=== PATIENT | male | born 1940 | race African-American/Black ===

== ENCOUNTER 2021-04-11 11:58 | Emergency (ER) | payer MEDICARE, OTHER ==
[~2021-04-11] VITALS: Ht 170.2 cm; Wt 96.2 kg
--- NOTE | 2021-04-11 12:19 | NUR ---
bib daughter, productive cough, sob x 2 months. PT AAOX4, VSS. RR EVEN & UNLABORED. DENIES CP, DIZZINESS, N/V AT THIS TIME. PT SEEN & EVAL'D BY DR. CAICEDO. PLACED ON EDGE BANDER OPERATOR, SR. WILL CONT TO MONITOR.
[2021-04-11 12:41] LABS: BASOPHILS % (AUTO) 0.6 % (0.0-2.0); EOSINOPHILS % (AUTO) 1.9 % (0.0-6.0); HEMATOCRIT 40 % (39-51); HEMOGLOBIN 12.1 g/dL (13.5-17.5); LYMPHOCYTES # (AUTO) 2.1 /CMM (0.8-4.8); LYMPHOCYTES % (AUTO) 33.5 % (20.0-44.0); MEAN CORPUSCULAR HGB CONC 30 g/dl (31.0-36.0); MEAN CORPUSCULAR VOLUME 79 fL (80-96); MONOCYTES # (AUTO) 0.6 /CMM (0.1-1.30); MONOCYTES % (AUTO) 9.4 % (2.0-12.0); NEUTROPHILS # (AUTO) 3.5 /CMM (1.8-8.9); NEUTROPHILS % (AUTO) 54.6 % (43.0-81.0); PLATELET COUNT (AUTO) 172 /CMM (150-450); RED BLOOD CELL COUNT(AUTO) 5.09 MIL/uL (4.5-6.0); WHITE BLOOD COUNT (AUTO) 6.4 K/uL (4.3-11.0)
[2021-04-11 12:43] LABS: CALCIUM, SERUM 9.2 mg/dL (8.5-10.1); CARBON DIOXIDE 32 mmol/L (21-32); CHLORIDE 102 mmol/L (98-107); CREATININE 1.3 mg/dL (0.6-1.3); GLUCOSE 251 mg/dL (74-106); POTASSIUM 4.4 mmol/L (3.5-5.1); SODIUM SERUM 142 mmol/L (136-145); UREA NITROGEN, BLOOD 23 mg/dL (7-18)
[2021-04-11 13:01] LABS: ALANINE AMINOTRANSFERASE 14 U/L (12-78); ALBUMIN 3.7 g/dL (3.4-5.0); ALKALINE PHOSPHATASE 106 U/L (46-116); ASPARTATE AMINOTRANSFERASE 10 U/L (15-37); BILIRUBIN,DIRECT 0.1 mg/dL (0.0-0.2); BILIRUBIN,TOTAL 0.2 mg/dL (0.2-1.0); NT-PRO BNP 84 PG/ML (0-125); TOTAL PROTEIN, SERUM 8.2 g/dL (6.4-8.2)
[2021-04-11] MEDS ORDERED: AZIT250T13 PO (13:25)
[2021-04-11 13:36] VITALS: BP 135/75
--- NOTE | 2021-04-11 13:36 | NUR ---
Patient discharged to home in stable condition. Written and verbal after care instructions given. Patient verbalizes understanding of instruction.
== END 2021-04-11 13:37 | disposition home or self-care (01) ==
LOC: ER 12:05
DX: J40 Bronchitis, not specified as acute or chronic (principal); Z20.822 Contact with and (suspected) exposure to COVID-19; E11.65 Type 2 diabetes mellitus with hyperglycemia; I10 Essential (primary) hypertension; R94.31 Abnormal electrocardiogram [ECG] [EKG]
CPT/HCPCS: 36415; 71045; 80048; 80076; 83880; 84484; 85025; 87426; 93005; 99285; C9803

== ENCOUNTER 2021-06-29 13:17 | Emergency (ER) | payer OTHER ==
[~2021-06-29] VITALS: Ht 170.2 cm; Wt 83.9 kg
[~2021-06-29 13:17] MED LIST: AZIT250T13 PO
[2021-06-29 13:34] VITALS: BP 151/88
--- NOTE | 2021-06-29 14:42 | NUR ---
AT BEDSIDE FOR EVAL.
[2021-06-29] MEDS ORDERED: LIDOCAINE 1%-EPI 1:100,000 20 ML VIAL TP ONE (15:00)
--- NOTE | 2021-06-29 16:21 | NUR ---
INCISION AND DRAINAGE DONE BY .
[2021-06-29] MEDS ORDERED: CLIN300C12 PO (16:28)
--- NOTE | 2021-06-29 16:30 | NUR ---
WOUND DRESSING DONE.
--- NOTE | 2021-06-29 16:34 | NUR ---
Patient discharged to home in stable condition. Written and verbal after care instructions given. Patient verbalizes understanding of instruction.
== END 2021-06-29 16:35 | disposition home or self-care (01) ==
LOC: ER 13:17
DX: L02.212 Cutaneous abscess of back [any part, except buttock and flank] (principal); I10 Essential (primary) hypertension; E11.9 Type 2 diabetes mellitus without complications
CPT/HCPCS: 10060; 99284; A6403

== ENCOUNTER 2021-07-06 09:24 | Emergency (ER) | payer OTHER ==
[~2021-07-06] VITALS: Ht 175.3 cm; Wt 90.7 kg
[~2021-07-06 09:24] MED LIST changes: +CLIN300C12 PO
--- NOTE | 2021-07-06 09:25 | NUR ---
AAOX3, came to ER for wound check on his upper back s/p I&D x 1 week. No redness or swelling noted. Skin is warm and dry. Awaiting md for eval.
--- NOTE | 2021-07-06 09:45 | NUR ---
Dr Macario at for cedric.
--- NOTE | 2021-07-06 10:38 | NUR ---
AT BEDSIDE FOR EVAL.
[2021-07-06] MEDS ORDERED: CLIN300C12 PO (11:19)
[2021-07-06] MEDS ORDERED: CLINDAMYCIN 900 MG/6 ML VIAL ONE (11:22)
[2021-07-06] MEDS ORDERED: CLINDAMYCIN 900 MG/6 ML VIAL IM ONE (11:30)
--- NOTE | 2021-07-06 11:32 | NUR ---
Patient discharged to home in stable condition. Written and verbal after care instructions given. Patient verbalizes understanding of instruction. Pt ambulatory with a steady gait
[2021-07-06 11:37] VITALS: BP 127/78
== END 2021-07-06 11:37 | disposition home or self-care (01) ==
LOC: ER 09:29
DX: L02.212 Cutaneous abscess of back [any part, except buttock and flank] (principal); I10 Essential (primary) hypertension; E11.9 Type 2 diabetes mellitus without complications
CPT/HCPCS: 10060; 96372; 99283; J3490

== ENCOUNTER 2021-07-09 11:37 | Emergency (ER) | payer OTHER ==
[~2021-07-09] VITALS: Ht 154.9 cm; Wt 90.7 kg
[2021-07-09 11:58] VITALS: BP 155/73
--- NOTE | 2021-07-09 12:01 | NUR ---
BIBS FOR WOUND CHECK S/P I&D TO UPPER BACK 2 DAYS AGO. DENIES PAIN. WILL CONTINUE TO MONITOR THE PATIENT.
--- NOTE | 2021-07-09 14:12 | NUR ---
Patient discharged to home in stable condition. Written and verbal after care instructions given. Patient verbalizes understanding of instruction.
== END 2021-07-09 14:13 | disposition home or self-care (01) ==
LOC: ER 11:37
DX: L02.212 Cutaneous abscess of back [any part, except buttock and flank] (principal); I10 Essential (primary) hypertension; E11.9 Type 2 diabetes mellitus without complications
CPT/HCPCS: 87070-TC

== ENCOUNTER 2022-01-23 22:15 | Emergency (ER) | payer OTHER ==
[~2022-01-23] VITALS: Ht 172.7 cm; Wt 70.3 kg
[2022-01-23 22:22] VITALS: BP 157/55
--- NOTE | 2022-01-23 22:58 | NUR ---
DAUGHTER IN LAW (ALEX) [phone]
--- NOTE | 2022-01-23 23:13 | NUR ---
Patient discharged to home in stable condition. Written and verbal after care instructions given. Patient verbalizes understanding of instruction. PT ambulatory with a steady gait. No active bleeding noted.
== END 2022-01-23 23:15 | disposition home or self-care (01) ==
LOC: ER 22:22
DX: R04.0 Epistaxis (principal); I10 Essential (primary) hypertension; E11.9 Type 2 diabetes mellitus without complications

== ENCOUNTER 2022-01-26 17:30 | Emergency (ER) | payer MEDICARE, OTHER ==
[~2022-01-26] VITALS: Ht 175.3 cm; Wt 89.8 kg
--- NOTE | 2022-01-26 17:45 | NUR ---
BIB SELF C/O NOSE BLEEDING SINCE WEDNESDAY. PER PT SEEN HERE LAST WEDNESDAY FOR SAME CC. THE PATIENT IS ALERT AND ORIENTED X3. IN ROOM AIR AND DENIES SOB. RESPIRATION REGULAR AND UNLABORED. WILL CONTINUE TO MONITOR THE PATIENT.
[2022-01-26] MEDS ORDERED: LIDOCAINE VISCOUS 2% UD 15 ML UDC ONE (17:56)
[2022-01-26] MEDS ORDERED: CEPH500C2 PO (18:52)
[2022-01-26 18:59] VITALS: BP 131/66
--- NOTE | 2022-01-26 18:59 | NUR ---
Patient discharged to home in stable condition. Written and verbal after care instructions given. Patient verbalizes understanding of instruction.
== END 2022-01-26 19:00 | disposition home or self-care (01) ==
LOC: ER 17:30
DX: R04.0 Epistaxis (principal); I10 Essential (primary) hypertension; E11.9 Type 2 diabetes mellitus without complications; Z79.899 Other long term (current) drug therapy

== ENCOUNTER 2022-01-29 14:39 | Emergency (ER) | payer OTHER ==
[~2022-01-29] VITALS: Ht 175.3 cm; Wt 90.7 kg
[~2022-01-29 14:39] MED LIST changes: +CEPH500C2 PO
[2022-01-29 14:50] VITALS: BP 138/68
[2022-01-29] MEDS ORDERED: PHENYLEPHRINE HCL NASAL SPRAY 15 ML BOTTLE NS ONE ×2 (15:30)
--- NOTE | 2022-01-29 15:42 | NUR ---
Patient discharged to home in stable condition. Written and verbal after care instructions given. Patient verbalizes understanding of instruction.
== END 2022-01-29 15:43 | disposition home or self-care (01) ==
LOC: ER 14:50
DX: R04.0 Epistaxis (principal); I10 Essential (primary) hypertension; E11.9 Type 2 diabetes mellitus without complications; Z79.899 Other long term (current) drug therapy

== ENCOUNTER 2022-04-07 09:20 | Inpatient (IN) | payer OTHER ==
[~2022-04-07] VITALS: Ht 175.3 cm; Wt 86.2 kg
--- NOTE | 2022-04-07 09:22 | NUR ---
BIB DAUGHTER C/O R MIDDLE TOE SWELLING POSSIBLE INFECTION X 3 DAYS. PT HAS HX OF DIABETES. PT ATTCHED TO MONITOR, VITALS ARE WITHIN NORMAL LIMITS, NO RESPIRATORY DISTRESS NOTED. WARM BLNAKET PROVIDED FOR COMFORT. AWAITING MD DURANT.
--- NOTE | 2022-04-07 09:44 | NUR ---
IV ESTABLIHSED L AC 20G. LABS DRAWN AND COLLECTED AT BEDSIDE.
--- NOTE | 2022-04-07 09:45 | NUR ---
RAPID COVID COLLECTED AND SENT
--- NOTE | 2022-04-07 09:57 | NUR ---
X RAY AT BEDSIDE
[2022-04-07 10:04] LABS: BASOPHILS % (AUTO) 0.5 % (0.0-2.0); EOSINOPHILS % (AUTO) 0.7 % (0.0-6.0); HEMATOCRIT 43 % (39-51); HEMOGLOBIN 13.6 g/dL (13.5-17.5); LYMPHOCYTES # (AUTO) 1.5 K/uL (0.8-4.8); LYMPHOCYTES % (AUTO) 29.3 % (20.0-44.0); MEAN CORPUSCULAR HGB CONC 32 g/dl (31.0-36.0); MEAN CORPUSCULAR VOLUME 82 fL (80-96); MONOCYTES # (AUTO) 0.4 K/uL (0.1-1.30); MONOCYTES % (AUTO) 7.9 % (2.0-12.0); NEUTROPHILS # (AUTO) 3.2 K/uL (1.8-8.9); NEUTROPHILS % (AUTO) 61.6 % (43.0-81.0); PLATELET COUNT (AUTO) 118 K/uL (150-450); RED BLOOD CELL COUNT(AUTO) 5.17 MIL/uL (4.5-6.0); WHITE BLOOD COUNT (AUTO) 5.2 K/uL (4.3-11.0)
[2022-04-07] MEDS ORDERED: OXYC1TAB8 PO (10:09)
[2022-04-07] MEDS ORDERED: LISI20TA30 PO (10:09)
[2022-04-07] MEDS ORDERED: FERR325T6 PO (10:09)
[2022-04-07] MEDS ORDERED: INSU100I19 SQ (10:09)
[2022-04-07] MEDS ORDERED: SIMV-46 PO (10:09)
[2022-04-07] MEDS ORDERED: METF-440 PO (10:09)
[2022-04-07] MEDS ORDERED: HYDR12.55 PO (10:09)
[2022-04-07 10:21] LABS: CALCIUM, SERUM 9.1 mg/dL (8.5-10.1); CREATININE 1.3 mg/dL (0.6-1.3); POTASSIUM 3.9 mmol/L (3.5-5.1)
[2022-04-07 10:27] LABS: C-REACTIVE PROTEIN 0.2 mg/dL (0.0-0.9)
[2022-04-07] MEDS ORDERED: VANCOMYCIN 1 GM in IV D5W 250 ML IV ONE (11:00)
[2022-04-07] MEDS ORDERED: PIPERACILLIN /TAZOBACTAM 3.375 G in IV D5W 50 ML IV ONE (11:00)
--- NOTE | 2022-04-07 12:32 | NUR ---
PT PROVIDED WITH MEAL TRAY
--- NOTE | 2022-04-07 12:51 | NUR ---
SPOKE TO SARAH FRAZIER TO GIVE CLINICALS
--- NOTE | 2022-04-07 18:52 | NUR ---
SPOKE TO [employer] PRESS OPERATOR MARY [phone], STATED PT IS PENDING ADMISSION TO [facility] AWAITING BED, WAS TOLD THERE WILL BE DISCHARGES TONIGHT.
--- NOTE | 2022-04-07 19:35 | NUR ---
RECEIVED REPORT FROM SUKHDEV STEWART FOR ELSA
--- NOTE | 2022-04-07 19:37 | NUR ---
PT RESTING COMFORTABLY IN BED, DENIES ANY PAIN AT THIS TIME. WILL CONTINUE TO MONITOR.
--- NOTE | 2022-04-07 20:00 | NUR ---
SPOKE WITH YASMEEN DUKES. AWAITING BED FROM [facility].
[2022-04-07] MEDS ORDERED: INSULIN GLARGINE, 100 UNIT/ML CARTRIDGE SQ ONE ×2 (21:00→21:12)
[2022-04-07] MEDS ORDERED: INSULIN GLARGINE, 100 UNIT/ML CARTRIDGE SQ SCH (21:00)
--- NOTE | 2022-04-07 21:36 | NUR ---
ACCUCHECK 110
--- NOTE | 2022-04-08 00:01 | NUR ---
SPOKE WITH JACQUELIN GODOY NOTCHED BLADE LOADER. STILL NO BED AVAILABLE BED AT [facility]. PT IS INSTEAD AUTHORIZED TO STAY HERE. VERBAL AUTH RECEIVED FROM [facility]ALT.
--- NOTE | 2022-04-08 00:18 | NUR ---
DR. LINDSEY AWARE OF ADMISSION AND RECEIVED ADMISSION ORDERS OVER THE TELEPHONE.
--- NOTE | 2022-04-08 00:42 | NUR ---
REPORT GIVEN TO PAT SOMERS
--- NOTE | 2022-04-08 00:43 | NUR ---
PATIENT BEING TRANSFERRED TO [facility]
[2022-04-08] MEDS ORDERED: DEXTROSE 50%-WATER 50 ML DISP.SYRIN IV PRN (01:30)
[2022-04-08] MEDS ORDERED: ZOLPIDEM TARTRATE 5 MG TABLET PO PRN (01:30)
[2022-04-08] MEDS ORDERED: MORPHINE SULFATE INJ 2 MG/ML DISP.SYRIN IV PRN (01:30)
[2022-04-08] MEDS ORDERED: ACETAMINOPHEN 325 MG TABLET PO PRN (01:30)
[2022-04-08] MEDS ORDERED: *INSULIN REGULAR(HUMULIN R)HUM 100 UNIT/ML VIAL SQ PRN (01:30)
[2022-04-08] MEDS ORDERED: ONDANSETRON HCL/PF 4 MG/2 ML VIAL IV PRN (01:30)
[2022-04-08] MEDS ORDERED: CLONIDINE HCL 0.1 MG TABLET PO PRN (01:30)
[2022-04-08 01:38] VITALS: BP 158/79
--- NOTE | 2022-04-08 01:51 | NUR ---
MS RN NOTES PT ARRIVED TO UNIT VIA GURNEY PT AMBULATED TO BED WITHOUT HELP NOTED PT WITH STEADY GAIT. PT A/0X 3-4 ABLE TO MAKE NEED KNOWN. NO RESPIRATORY DISTRESS BREATHING UNLABORED AND EVEN ON ROOM AIR TOLERATING WELL. PT NOT REPORTING ANY PAIN AT THIS TIME. PT NOTED WITH IV ACCESS ON THE LAC 20G FLUSHING WELL AND INTACT S/L. PT NOTED WITH RIGHT FOOT 3RD TOE DISCOLORATION TOE IS PURPLE NO NOTED DRAINAGE PRESENT. PICTURE TAKEN AND PLACED IN CHART WOUND CONSULT ORDERED. NO DRESSING PLACED AT THIS TIME PT REFUSED. PT REFUSED FULL BODY ASSESSMENT DID NOT WANT TO REMOVE BOXERS.BILATERAL SIDE RAILS UP FOR SAFETY. CALL LIGHT PLACED WITHIN REACH. TABLE WITHIN REACH PT ORIENTED TO ROOM AND UNIT ALL NEEDS ATTENDED TO AT THIS TIME. RECEIVED TELEPHONE ORDERS FROM DR LINDSEY ALL ORDERS NOTED AND CARRIED OUT WILL HAVE DAY SHIFT NURSE CLARIFY LANTUS DOSE AND F/U REGARDING MED RECON WITH . WILL CONTINUE TO MONITOR PT.
[2022-04-08 06:29] LABS: BASOPHILS % (AUTO) 0.3 % (0.0-2.0); EOSINOPHILS % (AUTO) 1.7 % (0.0-6.0); HEMATOCRIT 41 % (39-51); HEMOGLOBIN 13.4 g/dL (13.5-17.5); LYMPHOCYTES # (AUTO) 1.7 K/uL (0.8-4.8); LYMPHOCYTES % (AUTO) 33.3 % (20.0-44.0); MEAN CORPUSCULAR HGB CONC 33 g/dl (31.0-36.0); MEAN CORPUSCULAR VOLUME 82 fL (80-96); MONOCYTES # (AUTO) 0.5 K/uL (0.1-1.30); MONOCYTES % (AUTO) 10.7 % (2.0-12.0); NEUTROPHILS # (AUTO) 2.7 K/uL (1.8-8.9); PLATELET COUNT (AUTO) 120 K/uL (150-450)
[2022-04-08] MEDS: BLOOD SUGAR DIAGNOSTIC 1 EACH STRIP VI SCH ×4 (06:42→21:21)
[2022-04-08] MEDS: INSULIN REGULAR, HUMAN 100 UNIT/ML 3 ML VIAL SQ PRN ×2 (06:43→21:22)
--- NOTE | 2022-04-08 06:51 | NUR ---
MS RN NOTES PT IN BED ASLEEP EASILY WOKEN UP. ALL NEEDS MET AND ANTICIPATED AT ALL TIMES. SNACKS PROVIDED. PT NOT IN PAIN AT THIS TIME. BILATERAL SIDE RAILS UP FOR SAFETY. CALL LIGHT WITHIN REACH. TABLE WITHIN REACH. WILL ENODRSE CARE TO DAY SHIFT NURSE.
[2022-04-08 07:21] LABS: CALCIUM, SERUM 9.2 mg/dL (8.5-10.1); CREATININE 0.9 mg/dL (0.6-1.3); POTASSIUM 3.9 mmol/L (3.5-5.1)
--- NOTE | 2022-04-08 07:30 | NUR ---
MS RN OPENING NOTES RECEIVED PATIENT ON BED AWAKE AND A/O X4. ON ROOM AIR TOLERATING WELL. NO SOB NOTED. NOT IN DISTRESS. WITH NO COMPLAINTS OF PAIN OR DISCOMFORT AT THIS TIME. WITH IV ACCESS AT LEFT AC G20 SALINE LOCKED, PATENT AND INTACT. SAFETY MEASURES IN PLACED. CALL LIGHT WITHIN REACH. BED ON LOWEST LOCKED POSITION, SIDE RAILS UP X2. WILL CONTINUE TO MONITOR.
[2022-04-08 07:34] LABS: THYROID STIMULATING HORMONE 1.771 uIU/mL (0.358-3.74)
[2022-04-08 08:00] VITALS: BP 132/65
--- NOTE | 2022-04-08 09:20 | NUR ---
WOUND CARE CONSULT: PT PRESENTS WITH RT 3RD TOE DARK DISCOLORATION, NO DRAINAGE, PRESENT ON ADMISSION. DPM CONSULT CALLED TO DR HAMPAPUR. GRAY IN AGREEMENT WITH PLAN OF CARE.
[2022-04-08] MEDS ORDERED: oxyCODONE/APAP (5/325 MG) 1 UDTAB TABLET PO PRN (11:00)
[2022-04-08 16:00] VITALS: BP 159/73
--- NOTE | 2022-04-08 19:30 | NUR ---
MS RN OPENING NOTES PT IN BED ASLEEP EASILY WOKEN UP. ALL NEEDS MET AND ANTICIPATED AT ALL TIMES. SNACKS PROVIDED. PT NOT IN PAIN AT THIS TIME. ON ROOM AIR TOLERATING WELL. BILATERAL SIDE RAILS UP FOR SAFETY. CALL LIGHT WITHIN REACH. TABLE WITHIN REACH. WILL CONTINUE TO MONITOR.
--- NOTE | 2022-04-08 19:30 | NUR ---
MS RN CLOSING NOTES PATIENT ON BED AWAKE AND A/O X4. ON ROOM AIR TOLERATING WELL. NO SOB NOTED. NOT IN DISTRESS. WITH NO COMPLAINTS OF PAIN OR DISCOMFORT AT THIS TIME. WITH IV ACCESS AT LEFT AC G20 SALINE LOCKED, PATENT AND INTACT. DUE MEDS GIVEN. SAFETY MEASURES IN PLACED. CALL LIGHT WITHIN REACH. BED ON LOWEST LOCKED POSITION, SIDE RAILS UP X2. WILL ENDORSE TO NEXT SHIFT FOR ELSA.
[2022-04-08] MEDS ORDERED: INSULIN GLARGINE, 100 UNIT/ML CARTRIDGE SQ SCH (22:00)
[2022-04-08 22:23] VITALS: BP 125/77
[2022-04-09] MEDS: BLOOD SUGAR DIAGNOSTIC 1 EACH STRIP VI SCH ×2 (06:34→12:17)
[2022-04-09] MEDS: INSULIN REGULAR, HUMAN 100 UNIT/ML 3 ML VIAL SQ PRN (06:35)
--- NOTE | 2022-04-09 06:51 | NUR ---
MS RN CLOSING NOTES PT IN BED ASLEEP EASILY WOKEN UP. ALL NEEDS MET AND ANTICIPATED AT ALL TIMES. SNACKS PROVIDED. PT NOT IN PAIN AT THIS TIME. ON ROOM AIR TOLERATING WELL. BILATERAL SIDE RAILS UP FOR SAFETY. CALL LIGHT WITHIN REACH. TABLE WITHIN REACH. WILL ENDORSE CARE TO DAYSHIFT NURSE.
--- NOTE | 2022-04-09 07:20 | NUR ---
MS RN OPENING NOTES PT IN BED ASLEEP EASILY WOKEN UP. PATIEN IS ALERT AND ORIENTED X 3 BUT FORGETFUL AT TIMES. HE IS ON ROOM AIR TOLERATING WELL. WITH IV ACCESS ON LEFT AC G 20 ON SALINE LOCK. PATIENT AND INTACT. SAFETY MEASURES ENSURED WITH BED IN LOCKED AND LOW POSITION, BILATERAL SIDE RAILS UP FOR SAFETY. CALL LIGHT WITHIN REACH. TABLE WITHIN REACH.
[2022-04-09 08:00] VITALS: BP 113/59
[2022-04-09 08:31] VITALS: BP 158/68
[2022-04-09] MEDS ORDERED: LISINOPRIL (20MG) 20 MG TABLET PO SCH (09:00)
[2022-04-09] MEDS ORDERED: METFORMIN 500 MG TABLET PO SCH (09:00)
[2022-04-09] MEDS ORDERED: SIMVASTATIN 20 MG TABLET PO SCH (09:00)
[2022-04-09] MEDS ORDERED: ASPI-1420 PO (10:47)
[2022-04-09] MEDS ORDERED: ASPIRIN EC 81 MG TABLET.DR PO SCH (11:00)
--- NOTE | 2022-04-09 13:10 | NUR ---
MS RN NOTE SEEN BY DR. LINDSEY. WITH ORDER TO DISCHARGE PATIENT. HEALTH TEACHING DONE REGARDING DISCHARGE. VERBALIZED UNDERSTANDING AND APPRECIATION.
--- NOTE | 2022-04-09 15:45 | NUR ---
MS RN NOTE PATIENT DISCHARGED ORDERED. IV ACCESS REMOVED AND COVERED WITH DRY DRESSING. PROCEDURE TOLERATED WELL. PATIENT PICKED UP BY DAUGHTER AND INSTRUCTIONS REPEATED TO DAUGHTER. VERBALIZED UNDERSTANDING AND APPRECIATION. DAUGHTER ALSO SPOKE WITH DR. LINDSEY EARLIER. PATIENT ACCOMPANIED TO LOBBY BY NURSE. IN STABLE CONDITION. ENDORSED ACCORDINGLY.
== END 2022-04-09 15:45 | disposition home or self-care (01) | DRG 300 ==
LOC: ER 09:23 → MED 04-08 00:26
PROVIDERS: ADMIT Internal Medicine; ATTEND Internal Medicine
DX: E11.52 Type 2 diabetes mellitus with diabetic peripheral angiopathy with gangrene (principal); I96 Gangrene, not elsewhere classified; E11.621 Type 2 diabetes mellitus with foot ulcer; Z79.4 Long term (current) use of insulin; E78.5 Hyperlipidemia, unspecified; Z20.822 Contact with and (suspected) exposure to COVID-19; L97.513 Non-pressure chronic ulcer of other part of right foot with necrosis of muscle; I10 Essential (primary) hypertension; E11.40 Type 2 diabetes mellitus with diabetic neuropathy, unspecified; Z79.84 Long term (current) use of oral hypoglycemic drugs; Z79.899 Other long term (current) drug therapy
CPT/HCPCS: 36415; 71045-TC; 73630-TC; 80048-TC; 82962-TC; 84443-TC; 85025-TC; 85652-TC; 86140-TC; 87040-TC; 87081-TC; 93926-TC; C9803; G0378; J1815; J2543; J3370; J7060

== ENCOUNTER 2022-04-22 10:21 | Emergency (ER) | payer OTHER ==
[~2022-04-22] VITALS: Ht 175.3 cm; Wt 89.4 kg
[~2022-04-22 10:21] MED LIST changes: +ASPI-1420 PO; -AZIT250T13 PO; -CEPH500C2 PO; -CLIN300C12 PO; +FERR325T6 PO; +HYDR12.55 PO; +INSU100I19 SQ; +LISI20TA30 PO; +METF-440 PO; +OXYC1TAB8 PO; +SIMV-46 PO
--- NOTE | 2022-04-22 10:30 | NUR ---
SPONTANEOUS NOSEBLEED SINCE THIS MORNING,TAKES ASA,NO OTHER BLOOD THINNERS. AMBULATORY, PLACED ON BED WITH TEMPORARY GAUZE PACK, AAOX4
--- NOTE | 2022-04-22 10:55 | NUR ---
AT BED SIDE
[2022-04-22 12:10] LABS: BASOPHILS % (AUTO) 0.5 % (0.0-2.0); EOSINOPHILS % (AUTO) 3.8 % (0.0-6.0); HEMATOCRIT 42 % (39-51); HEMOGLOBIN 13.6 g/dL (13.5-17.5); LYMPHOCYTES # (AUTO) 1.6 K/uL (0.8-4.8); LYMPHOCYTES % (AUTO) 37.3 % (20.0-44.0); MEAN CORPUSCULAR HGB CONC 32 g/dl (31.0-36.0); MEAN CORPUSCULAR VOLUME 82 fL (80-96); MONOCYTES # (AUTO) 0.6 K/uL (0.1-1.30); MONOCYTES % (AUTO) 12.5 % (2.0-12.0); NEUTROPHILS % (AUTO) 45.9 % (43.0-81.0); PLATELET COUNT (AUTO) 151 K/uL (150-450); RED BLOOD CELL COUNT(AUTO) 5.16 MIL/uL (4.5-6.0); WHITE BLOOD COUNT (AUTO) 4.4 K/uL (4.3-11.0)
[2022-04-22 12:20] LABS: CALCIUM, SERUM 9.9 mg/dL (8.5-10.1); CARBON DIOXIDE 26 mmol/L (21-32); CHLORIDE 104 mmol/L (98-107); CREATININE 1.6 mg/dL (0.6-1.3); GLUCOSE 104 mg/dL (74-106); SODIUM SERUM 139 mmol/L (136-145); UREA NITROGEN, BLOOD 21 mg/dL (7-18)
--- NOTE | 2022-04-22 13:21 | NUR ---
URINE SAMPLE SENT TO LAB.
--- NOTE | 2022-04-22 14:20 | NUR ---
IV removed. Catheter intact and site benign. Pressure and 4x4 applied to site. No bleeding noted.Patient discharged to home in stable condition. Written and verbal after care instructions given. Patient verbalizes understanding of instruction.
--- NOTE | 2022-04-22 14:20 | NUR ---
Jayla reid in ED - 04/22/22 at 1436 by HOLLY Patient discharged to home in stable condition. Written and verbal after care instructions given. Patient verbalizes understanding of instruction.
[2022-04-22 14:37] VITALS: BP 144/81
== END 2022-04-22 14:20 | disposition home or self-care (01) ==
LOC: ER 10:21
DX: R04.0 Epistaxis (principal); I10 Essential (primary) hypertension; E78.5 Hyperlipidemia, unspecified; E11.9 Type 2 diabetes mellitus without complications; Z79.899 Other long term (current) drug therapy
CPT/HCPCS: 36415; 80048-TC; 85025-TC; 85730-TC; 86850-TC